=== PATIENT | male | born 1995 | race Caucasian/White ===

== ENCOUNTER 2017-11-23 10:25 | Emergency (ER) | payer OTHER ==
[2017-11-23 10:26] VITALS: BP 138/72; PULSE 96; TEMP 97.9; BMI 44.2
--- NOTE | 2017-11-23 10:32 | PDOC ---
History of Present Illness - General Chief Complaint: Sore Throat Stated Complaint: SORE THROAT History Source: Patient Exam Limitations: No Limitations - History of Present Illness Initial Comments: 11/23/17 11:43 Best Contact: PCP:None Pmhx:None Pshx:None Allergies:NKDA FH:Unk information Social Hx: Cigarettes/ 0 Alcohol/ 0 Drugs/0 LMP:N/A 22-year-old male presents to the emergency department complaining of a sore throat 3 days with left ear pain without fever, chills, nausea/vomiting, headache, dizziness, lightheadedness, facial pain, rhinorrhea, nasal congestion , difficulty swallowing, neck pain/stiffness, chest pain, shortness of breath, abdominal pains. Past History - Past Medical History Allergies/Adverse Reactions: Allergies Allergy/AdvReac Type Severity Reaction Status Date / Time No Known Allergies Allergy Verified 11/23/17 10:25 Home Medications: Ambulatory Orders Amoxicillin - [Amoxicillin 875mg Tablet -] 875 mg PO BID #14 tab 11/23/17 COPD: No - Immunization History Immunization Up to Date: Yes - Suicide/Smoking/Psychosocial Hx Smoking History: Never smoked Hx Alcohol Use: No Drug/Substance Use Hx: No Review of Systems - Review of Systems Able to Perform ROS?: Yes Comments:: 11/23/17 11:44 CONSTITUTIONAL: Absent: fever, chills, diaphoresis, generalized weakness, malaise, loss of appetite HEENT: Absent: rhinorrhea, nasal congestion, throat pain, throat swelling, difficulty swallowing, mouth swelling, ear pain, eye pain, visual Changes CARDIOVASCULAR: Absent: chest pain, loss of consciousness, palpitations, irregular heart rate, peripheral edema RESPIRATORY: Absent: cough, shortness of breath, dyspnea with exertion, orthopnea, wheezing, stridor, hemoptysis GASTROINTESTINAL: Absent: abdominal pain, abdominal distension, nausea, vomiting, diarrhea, constipation, melena, hematochezia GENITOURINARY: Absent: dysuria, frequency, urgency, hesitancy, hematuria, flank pain, genital pain MUSCULOSKELETAL: Absent: myalgia, arthralgia, joint swelling SKIN: Absent: rash, itching, pallor HEMATOLOGIC/IMMUNOLOGIC: Absent: easy bleeding, easy bruising, lymphadenopathy, frequent infections ENDOCRINE: Absent: unexplained weight gain, unexplained weight loss, heat intolerance, cold intolerance NEUROLOGIC: Absent: headache, focal weakness or paresthesias, dizziness, unsteady gait, seizure, mental status changes, bladder or bowel incontinence PSYCHIATRIC: Absent: anxiety, depression, suicidal or homicidal ideation, hallucinations. Is the patient limited Sinhala proficient: No *Physical Exam - Vital Signs Last Vital Signs Temp Pulse Resp BP Pulse Ox 97.9 F 96 H 18 138/72 100 11/23/17 10:25 11/23/17 10:25 11/23/17 10:25 11/23/17 10:25 11/23/17 10:25 - Physical Exam Comments: 11/23/17 11:44 GENERAL: Well developed, well nourished. Awake and alert. No acute distress. HEENT: +R>L TM +erythma/bulging Normocephalic, atraumatic. PERRLA, EOMI. No conjunctival pallor. Sclera are non- icteric. Moist mucous membranes. Oropharynx is clear. NECK: Supple. Full ROM. No JVD. Carotid pulses 2+ and symmetric, without bruits. No thyromegaly. No lymphadenopathy. CARDIOVASCULAR: Regular rate and rhythm. No murmurs, rubs, or gallops. Distal pulses are 2+ and symmetric. PULMONARY: No evidence of respiratory distress. Lungs clear to auscultation bilaterally. No wheezing, rales or rhonchi. ABDOMINAL: Soft. Non-tender. Non-distended. No rebound or guarding. No organomegaly. Normoactive bowel sounds. MUSCULOSKELETAL Normal range of motion at all joints. No bony deformities or tenderness. No CVA tenderness. EXTREMITIES: No cyanosis. No clubbing. No edema. No calf tenderness. SKIN: Warm and dry. Normal capillary refill. No rashes. No jaundice. NEUROLOGICAL: Alert, awake, appropriate. Cranial nerves 2-12 intact. No deficits to light touch and temperature in face, upper extremities and lower extremities. No motor deficits in the in face, upper extremities and lower extremities. Normoreflexic in the upper and lower extremities. Normal speech. Toes are down- going bilaterally. Gait is normal without ataxia. PSYCHIATRIC: Cooperative. Good eye contact. Appropriate mood and affect. Medical Decision Making - Medical Decision Making 11/23/17 11:45 22-year-old male presents to the ER complaining of bilateral ear pain and sore throat and no difficulty swallowing, fever or chills. Rapid strep/throat was negative. Bilateral ear exam: Consistent with otitis media. Patient will be treated with amoxicillin informed to follow with his physician. Otitis media Viral pharyngitis *DC/Admit/Observation/Transfer Diagnosis at time of Disposition: Viral pharyngitis Otitis media Qualifiers: Otitis media type: unspecified Chronicity: acute Qualified Code(s): H66.90 - Otitis media, unspecified, unspecified ear - Discharge Dispostion Disposition: HOME Condition at time of disposition: Stable Decision to Admit order: No - Prescriptions Prescriptions: Amoxicillin - [Amoxicillin 875mg Tablet -] 875 mg PO BID #14 tab - Referrals Referrals: Amelia Angel [Primary Care Provider] - Francisco Coker MD [Staff Physician] - - Patient Instructions Printed Discharge Instructions: Middle Ear Infection Additional Instructions: Amoxicillin as prescribed Tylenol alternating with Motrin as needed for pain or fever Follow up with your physician Return to the ER for severe/persistent/worsening symptoms - Post Discharge Activity
== END 2017-11-23 11:43 | disposition home or self-care (01) ==
LOC: JERFT 10:25
DX: J02.9 Acute pharyngitis, unspecified (principal); H66.93 Otitis media, unspecified, bilateral
CPT/HCPCS: 87070; 87430; 99281-25

== ENCOUNTER 2025-01-16 18:53 | Emergency (ER) | payer OTHER ==
[2025-01-16 19:35] VITALS: BP 146/77; PULSE 105; RESP 18; TEMP 97.6; BMI 54.6
[2025-01-16] MEDS ORDERED: DIPHTH,PERTUSS(ACELL),TET 0.5 ML DISP.SYRIN IM ONE (21:19)
[2025-01-16] MEDS: DIPHTH,PERTUSS(ACELL),TET 0.5 ML DISP.SYRIN IM ONE (21:22)
== END 2025-01-16 21:31 | disposition home or self-care (01) ==
LOC: JERFT 18:53
PROC: 0HQFXZZ Repair Right Hand Skin, External Approach (ICD-10-PCS; principal; 2025-01-16)
PROC: 3E0234Z Introduction of Serum, Toxoid and Vaccine into Muscle, Percutaneous Approach (ICD-10-PCS; 2025-01-16)
DX: S61.411A Laceration without foreign body of right hand, initial encounter (principal); Z23 Encounter for immunization; W29.0XXA Contact with powered kitchen appliance, initial encounter; Y99.0 Civilian activity done for income or pay
CPT/HCPCS: 12001-25; 90471; 90715; 99284-25